=== PATIENT | male | born 1975 | race Caucasian/White ===

== ENCOUNTER 2018-02-12 14:23 | Outpatient (CLI) | payer OTHER | END 2018-02-12 14:24 | disposition home or self-care (01) | LOC: SC 14:23 | PROVIDERS: ATTEND Internal Medicine Pulmonary Disease | DX: G47.33 Obstructive sleep apnea (adult) (pediatric) (principal) | CPT/HCPCS: 99203; 99212 ==

== ENCOUNTER 2018-04-12 20:31 | Outpatient (CLI) | payer OTHER | END 2018-04-12 20:32 | disposition home or self-care (01) | LOC: SC 20:31 | PROVIDERS: ATTEND Internal Medicine Pulmonary Disease | DX: G47.33 Obstructive sleep apnea (adult) (pediatric) (principal) | CPT/HCPCS: 95810 ==

== ENCOUNTER 2018-05-09 09:02 | Outpatient (CLI) | payer OTHER | END 2018-05-09 09:03 | disposition home or self-care (01) | LOC: SC 09:02 | PROVIDERS: ATTEND Nurse Practitioner Family | DX: G47.33 Obstructive sleep apnea (adult) (pediatric) (principal) | CPT/HCPCS: 99212; 99214 ==

== ENCOUNTER 2018-10-07 17:22 | Outpatient (CLI) | payer OTHER ==
[2018-10-07] MEDS ORDERED: GADOBUTROL 10 MMOL/10 ML VIAL ONE (18:58)
[2018-10-07] MEDS ORDERED: GADOBUTROL 10 MMOL/10 ML VIAL IVP ONE (19:30)
--- NOTE | 2018-10-08 11:12 | MRI Report ---
Reason: MASS AT R NECK BASE Procedure Date: 10/07/2018 Accession Number: [id number] / [id number] Procedure: MRI - Neck Soft Tissue W/WO CPT Code: FULL RESULT: EXAM: MRI SOFT TISSUE NECK WITHOUT AND WITH CONTRAST EXAM DATE: 10/07/2018 08:14 PM. CLINICAL HISTORY: Mass at right neck base. COMPARISON: None. TECHNIQUE: Multiplanar, multisequence T1-weighted and fluid-sensitive MR sequences of the neck soft tissues were performed. Other: None. IV Contrast: 10 cc Gadavist. FINDINGS: No suspicious marrow replacement is seen in the cervical vertebral bodies. No mass is present in either parotid gland or in either submandibular gland. The thyroid gland is not enlarged. No bulky lymphadenopathy is seen in the neck. Nonenlarged lymph nodes are present at level 2 bilaterally. These might well be reactive in nature. Retention cyst/polyp formation is present in the right maxillary sinus. Scattered paranasal sinus mucosal thickening is present. In the posterior right neck at the level of the C4 vertebral body in the subcutaneous fat note is made of a T1 hyperintense well-circumscribed mass measuring 3.2 x 2.7 x 6.5 cm craniocaudal by anterior posterior by transverse. This follows fat signal on all pulse sequences. There is no associated enhancement. There is no involvement of the underlying muscles. No enhancing masses in the visualized brain. No mass is present in either orbit. No mass is identified in the nasopharynx. Parapharyngeal fat is symmetric. Aryepiglottic folds are not thickened. There is slight asymmetric soft tissue fullness involving the right aryepiglottic fold best seen on image 13 of series 1101 and image 16 of series 1001. IMPRESSION: 1. There is an encapsulated lipoma in the posterior right neck at the level of a marker. 2. No lymphadenopathy is seen in the neck. 3. Soft tissue asymmetry is seen involving the right aryepiglottic fold. Direct visualization would be of value to exclude a mass. 4. A mild subligamentous central disk protrusion is seen at C3-C4. RADIA
== END 2018-10-07 17:23 | disposition home or self-care (01) ==
LOC: DI 17:22
PROVIDERS: ATTEND Specialist
DX: D17.0 Benign lipomatous neoplasm of skin and subcutaneous tissue of head, face and neck (principal); M50.21 Other cervical disc displacement, high cervical region
CPT/HCPCS: 70543; A9585

== ENCOUNTER 2020-03-11 18:29 | Outpatient (CLI) | payer OTHER ==
--- NOTE | 2020-03-12 09:50 | Ultrasound Report ---
PROCEDURE: Testicle INDICATIONS: LT TESTICULAR MASS TECHNIQUE: Real-time scanning was performed of the scrotum and testicles, with image documentation. Color and p ulse Doppler interrogation was performed of both testicles. COMPARISON: None. FINDINGS: Right: Testicle is normal in size at 3.1 x 3.2 x 5.4 cm, and homogenous in echotexture. Epididymis is normal in overall size and morphology. No hydrocele or varicoceles. Overlying scrotal skin is no rmal in thickness. There are scattered right small epididymal cysts. Left: Testicle is normal in size at 3.0 x 3.6 x 5.2 cm, and homogeneous in echotexture. Epididymis is normal in overall size and morphology. No hydrocele or varicoceles. Overlying scrotal skin is no rmal in thickness. There is a small 4 mm left epididymal cyst. Doppler: Color and pulse Doppler demonstrate normal and symmetric arterial flow in both testicles. IMPRESSION: No testicular mass lesion found, no dominant epididymal cyst or mass identified. Source of reported l eft testicular masslike structure is not found. The area of the patient's clinical concern is localiz ed to the left epididymis. Reviewed by: Kaz Lorenzo MD on 03/12/2020 9:49 AM PDT Approved by: Kaz Lorenzo MD on 03/12/2020 9:49 AM PDT Station ID: [id number]
== END 2020-03-11 18:30 | disposition home or self-care (01) ==
LOC: DI 18:29
PROVIDERS: ATTEND Physician Assistant Medical
DX: N50.89 Other specified disorders of the male genital organs (principal)
CPT/HCPCS: 76870

== ENCOUNTER 2020-04-28 20:56 | Emergency (ER) | payer OTHER ==
[2020-04-28 21:03] VITALS: BP 141/93
--- NOTE | 2020-04-28 21:59 | ED Physician Documentation ---
PD HPI WOUND RECHECK - Stated complaint Stated Complaint: BLEEDING SURGERY SITE - Chief complaint Chief Complaint: Wound - Histroy obtained from History obtained from: Patient - History of Present Illness Location: Back Timing - onset: Today - Additional information Additional information: 44-year-old male presents the emergency department for concern that he may have ruptured a suture. This morning he had a lipoma removed from his posterior back near the right shoulder at [facility]. This afternoon he was going to the bathroom and bent over and felt a pop in the area where the incision was and then he had some bleeding. He felt that the bleeding was controlled but his insisted he present for ER evaluation Review of Systems Constitutional: reports: Reviewed and negative Eyes: reports: Reviewed and negative Ears: reports: Reviewed and negative Nose: reports: Reviewed and negative Cardiac: reports: Reviewed and negative Respiratory: reports: Reviewed and negative GI: reports: Reviewed and negative : reports: Reviewed and negative Skin: reports: Other (Surgical incision right upper posterior back) PD PAST MEDICAL HISTORY - Past Medical History Past Medical History: Yes GI: Ulcerative colitis - Past Surgical History Past Surgical History: No - Present Medications Home Medications: Ambulatory Orders Medication Instructions Recorded Confirmed No Known Home Medications 04/28/20 04/28/20 - Allergies Allergies/Adverse Reactions: Allergies Allergy/AdvReac Type Severity Reaction Status Date / Time No Known Drug Allergies Allergy Verified 04/28/20 21:03 - Social History Does the pt smoke?: No Smoking Status: Never smoker Does the pt drink ETOH?: Yes Does the pt have substance abuse?: No - Immunizations Immunizations are current?: No Immunizations: TDAP >10years/unknown PD ED PE EXPANDED - Derm Derm: Other (5 cm linear surgical incision right upper posterior back at the site of lipoma removal. All sutures appear intact and the wound is well approximated. There is some fresh bruising and bleeding noted at the site but no active extravasation) Results - Vitals Vitals: Vital Signs - 24 hr 04/28/20 21:00 Temperature 36.3 C L Heart Rate 82 Respiratory 18 Rate Blood Pressure 141/93 H O2 Saturation 95 Oxygen O2 Source Room air PD MEDICAL DECISION MAKING - ED course Complexity details: d/w patient ED course: 44-year-old male presents the emergency department for evaluation of a surgical incision that bled when he bent over this afternoon. On my exam he has all 5 sutures that are well seated and in place. There is some fresh blood around the surgical site but no active bleeding. It is possible this gentleman may have ruptured an internal suture. The wound appears clean dry and free of signs of infection. At this time no further treatment was rendered. It was cleansed and nonadherent dressing was placed over the wound and taped. I have advised the patient to discuss this ED visit with his surgeon. Emergent return precautions were discussed for concerns of infection Departure - Departure Disposition: 01 Home, Self Care Clinical Impression: Surgical wound present, Bleeding from wound Condition: Stable Record reviewed to determine appropriate education?: Yes Comments: Jose Miguel the incision looks good. All of the sutures that are there right now appear to be in place normally. It is possible that you may have ruptured an internal suture and that is the cause of bleeding. At this time no further treatment needs to be rendered. I do recommend that you continue wound care as your surgeon advised. I also recommend that you discuss this ED visit with your surgeon. Here she may be interested and seeing the pictures that we took tonight. Please return to the emergency department if you have concerns of infection which would include redness, swelling, fevers, milky drainage coming from the wound
== END 2020-04-28 22:02 | disposition home or self-care (01) ==
LOC: ED 20:56
DX: L76.21 Postprocedural hemorrhage of skin and subcutaneous tissue following a dermatologic procedure (principal)
CPT/HCPCS: 99281

== ENCOUNTER 2020-05-04 09:10 | Outpatient (CLI) | payer OTHER | END 2020-05-04 09:11 | disposition home or self-care (01) | LOC: RT 09:10 | PROVIDERS: ATTEND Physician Assistant Medical | DX: R06.00 Dyspnea, unspecified (principal) | CPT/HCPCS: 94010; 94729 ==

== ENCOUNTER 2021-08-25 20:46 | Emergency (ER) | payer OTHER ==
[2021-08-25 21:22] LABS: BASOPHILS # (AUTO) 0.1 10^3/uL (0.0-0.1); BASOPHILS % (AUTO) 0.7 %; EOSINOPHILS # (AUTO) 0.6 10^3/uL (0.0-0.7); EOSINOPHILS % (AUTO) 5.4 %; HCT - HEMATOCRIT 47.8 % (42.0-52.0); HGB - HEMOGLOBIN 15.9 g/dL (14.0-18.0); LYMPHOCYTES # (AUTO) 2.4 10^3/uL (1.5-3.5); LYMPHOCYTES % (AUTO) 23.5 %; MEAN CORPUSCULAR HEMOGLOBIN 28.9 pg (27.0-31.0); MEAN CORPUSCULAR HGB CONC 33.3 g/dL (32.0-36.0); MEAN CORPUSCULAR VOLUME 86.8 fL (80.0-94.0); MEAN PLATELET VOLUME 10.9 fL (7.4-11.4); MONOCYTES # (AUTO) 0.9 10^3/uL (0.0-1.0); MONOCYTES % (AUTO) 9.2 %; NEUTROPHILS # (AUTO) 6.2 10^3/uL (1.5-6.6); NEUTROPHILS % (AUTO) 60.9 %; PLT - PLATELET COUNT 240 10^3/uL (130-450); RED BLOOD COUNT 5.51 10^6/uL (4.70-6.10); RED CELL DISTRIBUTION WIDTH 13.6 % (12.0-15.0); WHITE BLOOD COUNT 10.2 x10^3/uL (4.8-10.8)
[2021-08-25 21:37] LABS: ALBUMIN 4.5 g/dL (3.2-5.5); ALBUMIN/GLOBULIN RATIO 1.5 (1.0-2.2); BILIRUBIN,TOTAL 0.9 mg/dL (0.2-1.0); CALCIUM 9.6 mg/dL (8.5-10.3); CREATININE 1.3 mg/dL (0.6-1.2); POTASSIUM 3.7 mmol/L (3.5-5.0); TOTAL PROTEIN 7.5 g/dL (6.7-8.2)
--- NOTE | 2021-08-25 21:47 | XRAY Report ---
PROCEDURE: Chest 1 View X-Ray INDICATIONS: Chest Pain TECHNIQUE: One view of the chest was acquired. COMPARISON: None FINDINGS: Surgical changes and devices: None. Lungs and pleura: No pleural effusions or pneumothorax. Lungs are clear. Mediastinum: Mediastinal contours appear normal. Heart size is normal. Bones and chest wall: No suspicious bony lesions. Overlying soft tissues appear unremarkable. IMPRESSION: No acute process. Reviewed by: Tammy Avina MD on 08/25/2021 9:46 PM [facility] Approved by: Tammy Avina MD on 08/25/2021 9:46 PM [facility] Station ID: [id number]
[2021-08-25] MEDS ORDERED: ONDANSETRON 4 MG/2 ML VIAL IVP STA (22:22)
[2021-08-25] MEDS ORDERED: FAMOTIDINE 20 MG/2 ML VIAL IVP STA (22:23)
--- NOTE | 2021-08-25 22:25 | ED Physician Documentation ---
History of Present Illness - Stated complaint Stated Complaint: CHEST PX, ABD PX, DIZZY - Chief complaint Chief Complaint: Cardiac - History obtained from History obtained from: Patient - Additonal information Additional information: 45-year-old man with past medical history of asthma, no other medical problems, non-smoker, no family history of cardiac disease, presents with gradual onset chest pain for the past 4 days, constant, left-sided radiating to the epigastrium, associated with fatigue and intermittent dizziness, nonexertional, also with nausea and 7 loose stools today.Denies fever, cough, worsening soa, back pain, urinary symptoms. Review of Systems Ten Systems: 10 systems reviewed and negative Constitutional: denies: Fever, Chills Cardiac: reports: Chest pain / pressure Respiratory: denies: Dyspnea, Cough GI: reports: Abdominal Pain, Nausea, Diarrhea. denies: Vomiting PD PAST MEDICAL HISTORY - Past Medical History Past Medical History: Yes GI: Ulcerative colitis HEENT: Other Other Past Medical History: Hx nasal septoplasty - Past Surgical History Past Surgical History: No General: Cholecystectomy - Present Medications Home Medications: Ambulatory Orders Medication Instructions Recorded Confirmed Citalopram Hydrobromide [Celexa] 08/25/21 Famotidine [Pepcid] 20 mg PO BID PRN #20 tablet 08/25/21 Ondansetron Odt [Zofran Odt] 4 mg TL Q6H PRN #10 tablet 08/25/21 Prazosin HCl [Minipress] 2 mg PO 08/25/21 - Allergies Allergies/Adverse Reactions: Allergies Allergy/AdvReac Type Severity Reaction Status Date / Time No Known Drug Allergies Allergy Verified 08/25/21 20:53 - Social History Does the pt smoke?: No Smoking Status: Never smoker Does the pt drink ETOH?: No Does the pt have substance abuse?: No - Immunizations Immunizations are current?: No Immunizations: TDAP >10years/unknown PD ED PE NORMAL - Vitals Vital signs reviewed: Yes - General General: Alert and oriented X 3, No acute distress, Well developed/nourished - HEENT HEENT: Atraumatic, PERRL, EOMI - Neck Neck: Supple, no meningeal sign - Cardiac Cardiac: RRR - Respiratory Respiratory: No respiratory distress, Clear bilaterally - Abdomen Abdomen: Non tender, Non distended - Back Back: No CVA TTP - Derm Derm: Normal color, Warm and dry - Extremities Extremities: No deformity - Neuro Neuro: Alert and oriented X 3, No motor deficit, No sensory deficit - Psych Psych: Normal mood, Normal affect Results - Vitals Vitals: Vital Signs - 24 hr 08/25/21 08/25/21 20:53 21:55 Temperature 36.5 C Heart Rate 72 64 Respiratory 16 11 L Rate Blood Pressure 140/90 H 134/85 H O2 Saturation 98 98 Oxygen O2 Source Room air - Labs Labs: Laboratory Tests 08/25/21 08/25/21 08/25/21 21:15 21:15 21:15 WBC 10.2 RBC 5.51 Hgb 15.9 Hct 47.8 MCV 86.8 MCH 28.9 MCHC 33.3 RDW 13.6 Plt Count 240 MPV 10.9 Neut # (Auto) 6.2 Lymph # (Auto) 2.4 [place]yer # (Auto) 0.9 Eos # (Auto) 0.6 Baso # (Auto) 0.1 Absolute Nucleated RBC 0.00 Nucleated RBC % 0.0 Sodium 140 Potassium 3.7 Chloride 98 L Carbon Dioxide 29 Anion Gap 13.0 BUN 17 Creatinine 1.3 H Estimated GFR (MDRD) 59 L Glucose 100 Calcium 9.6 Total Bilirubin 0.9 AST 18 ALT 19 Alkaline Phosphatase 49 Troponin I High Sens 3.9 Total Protein 7.5 Albumin 4.5 Globulin 3.0 Albumin/Globulin Ratio 1.5 Lipase 58 H PD MEDICAL DECISION MAKING - ED course ED course: 45-year-old man presenting with chest pain, heart score 0. PERC negative. On further history, he is having diarrhea, nausea, dizziness, and fatigue for the past few days. Possible viral syndrome. Symptomatic care discussed and return precautions given. Patient will follow up with his primary doctor. Departure - Departure Disposition: 01 Home, Self Care Clinical Impression: Chest pain, Diarrhea, Abdominal pain, Nausea, Dizziness Condition: Stable Instructions: ED Chest Pain Atypical Unkn Cause Prescriptions: Famotidine [Pepcid] 20 mg PO BID PRN #20 tablet PRN Reason: Pain Ondansetron Odt [Zofran Odt] 4 mg TL Q6H PRN #10 tablet PRN Reason: Nausea / Vomiting Comments: You are seen in the emergency department for evaluation of chest pain, abdominal pain, nausea, and loose stools. It is possible that you have a virus. Make sure that you continue to stay well-hydrated and get lots of rest. Follow-up with your primary doctor soon as possible. Return to the emergency department if you have any new or worsening symptoms or other concerns.
[2021-08-25 22:54] VITALS: BP 130/88
== END 2021-08-25 22:53 | disposition home or self-care (01) ==
LOC: ED 20:46
DX: R07.9 Chest pain, unspecified (principal); R10.9 Unspecified abdominal pain; R19.7 Diarrhea, unspecified; R11.0 Nausea; R42 Dizziness and giddiness
CPT/HCPCS: 36415; 80053; 83690; 84484; 85025; 93005; 96374; 96375; 99284

== ENCOUNTER 2021-08-26 08:12 | Emergency (ER) | payer OTHER ==
--- NOTE | 2021-08-26 08:23 | ED Physician Documentation ---
PD HPI ABD PAIN - Stated complaint Stated Complaint: ABD PX - History obtained from History obtained from: Patient - History of Present Illness Timing - onset: Yesterday Timing - duration: Days (2) Timing - details: Abrupt onset, Still present (has increased overnight) Quality: Cramping, Aching, Pain Location: RUQ, Epigastric Radiation: Chest. No: Lower back Improved by: No: Eating Worsened by: Eating Associated symptoms: Nausea, Vomiting (few episodes), Diarrhea (6-7 episodes yesterday, none today). No: Fever Similar symptoms before: Has not had sx before Recently seen: Clinic (went to [facility] this morning and referred to ER.), Emergency Dept (last evening for chest/abd pain as above.) Review of Systems Constitutional: reports: Myalgias. denies: Fever, Chills Nose: denies: Rhinorrhea / runny nose, Congestion Throat: denies: Sore throat Cardiac: denies: Palpitations Respiratory: denies: Cough GI: reports: Abdominal Pain, Nausea, Vomiting, Diarrhea. denies: Hematemesis, Bloody / black stool : denies: Dysuria, Frequency Musculoskeletal: denies: Neck pain, Back pain PD PAST MEDICAL HISTORY - Past Medical History Cardiovascular: None Respiratory: None GI: Ulcerative colitis HEENT: Other - Past Surgical History Past Surgical History: No General: Cholecystectomy - Present Medications Home Medications: Ambulatory Orders Medication Instructions Recorded Confirmed Citalopram Hydrobromide [Celexa] 08/25/21 Famotidine [Pepcid] 20 mg PO BID PRN #20 tablet 08/25/21 Ondansetron Odt [Zofran Odt] 4 mg TL Q6H PRN #10 tablet 08/25/21 Prazosin HCl [Minipress] 2 mg PO 08/25/21 HYDROcod/ACETAM 5/325 [Squires 5/325] 1 ea PO Q6H PRN #12 tablet 08/26/21 Lidocaine Viscous 2% [Xylocaine 5 ml PO Q4H PRN #100 ml 08/26/21 Viscous 2%] Ondansetron Odt [Zofran] 4 mg TL Q6H PRN #10 tablet 08/26/21 Pantoprazole Sodium 20 mg PO DAILY 30 Days #30 tab 08/26/21 Sucralfate [Carafate] 1 gm PO ACHS #20 tablet 08/26/21 - Allergies Allergies/Adverse Reactions: Allergies Allergy/AdvReac Type Severity Reaction Status Date / Time No Known Drug Allergies Allergy Verified 08/26/21 08:28 - Social History Does the pt smoke?: No Smoking Status: Never smoker Does the pt drink ETOH?: No Does the pt have substance abuse?: No - Immunizations Immunizations are current?: No Immunizations: TDAP >10years/unknown PD ED PE NORMAL - Vitals Vital signs reviewed: Yes - General General: Alert and oriented X 3, No acute distress, Well developed/nourished - HEENT HEENT: Pharynx benign - Neck Neck: Supple, no meningeal sign, No adenopathy - Cardiac Cardiac: RRR, No murmur - Respiratory Respiratory: Clear bilaterally - Abdomen Abdomen: Normal bowel sounds, Soft, Non distended, No organomegaly, Other (tender without guarding epigastric and RUQ area without percussion nor rebound tenderness. Some local guarding. ) - Back Back: No CVA TTP - Derm Derm: Normal color, Warm and dry - Extremities Extremities: Normal ROM s pain - Neuro Neuro: Alert and oriented X 3, No motor deficit, Normal speech Results - Vitals Vitals: Vital Signs - 24 hr 08/26/21 08/26/21 08/26/21 08:27 09:30 10:21 Temperature 36.4 C L Heart Rate 76 78 77 Respiratory 20 12 15 Rate Blood Pressure 138/99 H 134/77 H 135/83 H O2 Saturation 96 92 93 08/26/21 08/26/21 11:00 11:31 Temperature Heart Rate 71 80 Respiratory 20 12 Rate Blood Pressure 119/75 119/75 O2 Saturation 94 94 Oxygen O2 Source Room air - Labs Labs: Laboratory Tests 08/26/21 08/26/21 08:40 08:40 WBC 13.1 H RBC 5.40 Hgb 15.5 Hct 45.8 MCV 84.8 MCH 28.7 MCHC 33.8 RDW 13.5 Plt Count 224 MPV 10.8 Neut # (Auto) 11.2 H Lymph # (Auto) 1.0 L [place] # (Auto) 0.7 Eos # (Auto) 0.1 Baso # (Auto) 0.0 Absolute Nucleated RBC 0.00 Nucleated RBC % 0.0 Sodium 135 Potassium 3.8 Chloride 100 L Carbon Dioxide 24 Anion Gap 11.0 BUN 16 Creatinine 1.2 Estimated GFR (MDRD) 65 L Glucose 138 H Calcium 9.0 Total Bilirubin 0.8 AST 19 ALT 20 Alkaline Phosphatase 49 Total Protein 7.6 Albumin 4.4 Globulin 3.2 Albumin/Globulin Ratio 1.4 Lipase 37 - Rads (name of study) abd CT Radiology: Prelim report reviewed (thickened gastric mucosa in antrum. Duodenal diverticulum noted, but no signs inflammation at it. ), See rad report PD MEDICAL DECISION MAKING - ED course Complexity details: reviewed results (he is feeling better with PO and IV meds. ), re-evaluated patient (CT showing likely gastritis with antral wall thickening. Noted is a duodenal diverticula without signs of diverticulitis. No other acute process.), considered differential (gastritis/GE, biliary duct blockage, transverse colon divertic, pancreatitis, etc. ), d/w patient Departure - Departure Disposition: 01 Home, Self Care Clinical Impression: Acute upper abdominal pain, Duodenal diverticulum Gastritis, acute Qualifiers: Gastritis type: unspecified gastritis Gastritis bleeding: without bleeding Qualified Code(s): K29.00 - Acute gastritis without bleeding Condition: Stable Record reviewed to determine appropriate education?: Yes Instructions: ED Gastritis Prescriptions: Sucralfate [Carafate] 1 gm PO ACHS #20 tablet HYDROcod/ACETAM 5/325 [Squires 5/325] 1 ea PO Q6H PRN #12 tablet PRN Reason: Pain Pantoprazole Sodium 20 mg PO DAILY 30 Days #30 tab Lidocaine Viscous 2% [Xylocaine Viscous 2%] 5 ml PO Q4H PRN #100 ml PRN Reason: Pain Ondansetron Odt [Zofran] 4 mg TL Q6H PRN #10 tablet PRN Reason: Nausea / Vomiting Comments: Your CT scan shows some thickening of the wall of the stomach consistent with gastritis. No signs of perforation or such. DENTAL: No loose or chipped teeth. No malocclusion. Note is the presence of a diverticula from the duodenum which is the first part of the small intestine. It does not appear to have any infection or inflammation of it. Your gastritis may be part of a viral type illness (gastroenteritis) and account for some of the diarrhea you would had as well. However the stomach lining is still irritated now and causing the pain. As such we would treat it with acid reducing medicines for the next couple of weeks to a month as well as several days of coating the stomach with a medicine called sacral fate. To this you can add ondansetron if needed for nausea and antacids such as Maalox or Mylanta with some lidocaine if needed. Avoid irritants of the stomach such as caffeine, alcohol, NSAIDs, very spicy food. This would be for the next week or 2. If needed for pain, add Tylenol every 4-6 hours or hydrocodone if needed for worse pain. I would anticipate improvement over the next several days. Recheck if not improving well or if worsening. I transmitted your prescriptions to [facility] in [place]. I am prescribing a short course of narcotic pain medication for you. These are potentially dangerous and addictive medications that should be used carefully. These medications may constipate you. Take an [id number] stool softener such as docusate twice daily with plenty of water while taking these medications. If you go 24 hours without a bowel movement, take [id number]-[id number] MiraLAX, per package instructions. Do not drink or drive while taking these medications. If you received narcotic or sedating medications while in the emergency department do not drive for 24 hours. Store this medication in a safe, secure place and out of reach of children. It is a violation of federal law to give or sell this medication to another person or to use in a manner other than prescribed. The ED will not refill narcotic prescriptions, including prescriptions lost or stolen. You can dispose of unwanted medications at the [facility]'s office or at several pharmacies such as [facility]. Discharge Date/Time: 08/26/21 11:40
[2021-08-26] MEDS ORDERED: SODIUM CHLORIDE 0.9% 1,000 ML IV STA (08:37)
[2021-08-26] MEDS ORDERED: HYDROmorphone 1 MG/ML CARPUJECT IVP STA (08:37)
[2021-08-26] MEDS ORDERED: ONDANSETRON 4 MG/2 ML VIAL IVP STA (08:37)
[2021-08-26] MEDS ORDERED: MAG HYDROX/AL HYDROX/SIMETH 30 ML UDC PO STA (08:37)
[2021-08-26] MEDS ORDERED: LIDOCAINE VISCOUS 2% 15 ML UDC MM STA (08:37)
[2021-08-26 08:46] LABS: BASOPHILS % (AUTO) 0.2 %; EOSINOPHILS # (AUTO) 0.1 10^3/uL (0.0-0.7); EOSINOPHILS % (AUTO) 0.5 %; HCT - HEMATOCRIT 45.8 % (42.0-52.0); HGB - HEMOGLOBIN 15.5 g/dL (14.0-18.0); LYMPHOCYTES % (AUTO) 7.6 %; MEAN CORPUSCULAR HEMOGLOBIN 28.7 pg (27.0-31.0); MEAN CORPUSCULAR HGB CONC 33.8 g/dL (32.0-36.0); MEAN CORPUSCULAR VOLUME 84.8 fL (80.0-94.0); MEAN PLATELET VOLUME 10.8 fL (7.4-11.4); MONOCYTES # (AUTO) 0.7 10^3/uL (0.0-1.0); MONOCYTES % (AUTO) 5.3 %; NEUTROPHILS # (AUTO) 11.2 10^3/uL (1.5-6.6); NEUTROPHILS % (AUTO) 86.1 %; PLT - PLATELET COUNT 224 10^3/uL (130-450); RED CELL DISTRIBUTION WIDTH 13.5 % (12.0-15.0); WHITE BLOOD COUNT 13.1 x10^3/uL (4.8-10.8)
[2021-08-26 09:00] LABS: ALBUMIN 4.4 g/dL (3.2-5.5); ALBUMIN/GLOBULIN RATIO 1.4 (1.0-2.2); BILIRUBIN,TOTAL 0.8 mg/dL (0.2-1.0); CREATININE 1.2 mg/dL (0.6-1.2); POTASSIUM 3.8 mmol/L (3.5-5.0); TOTAL PROTEIN 7.6 g/dL (6.7-8.2)
[2021-08-26] MEDS ORDERED: IOPAMIDOL-300 50 ML VIAL ONE (09:26)
[2021-08-26] MEDS ORDERED: IOVERSOL 320 100 ML VIAL IVP ONE ×2 (09:26→10:15)
[2021-08-26] MEDS ORDERED: IOPAMIDOL-300 50 ML VIAL PO ONE (10:15)
--- NOTE | 2021-08-26 10:46 | CT Report ---
PROCEDURE: Abdomen/Pelvis W INDICATIONS: upper abd pain for 2 days CONTRAST: IV CONTRAST: Optiray 320 ml: 100 PO CONTRAST: Isovue 300 ml50 TECHNIQUE: After the administration of oral and intravenous contrast, 5 mm thick sections acquired from the diap hragms to the symphysis. 5 mm thick coronal and sagittal reformats were acquired. For radiation dos e reduction, the following was used: automated exposure control, adjustment of mA and/or kV accordin g to patient size. COMPARISON: None. FINDINGS: Image quality: Excellent. ABDOMEN: Lung bases: Lung bases are clear. Heart size is normal. Small hiatal hernia. Solid organs: Liver is normal in size. This mild hepatic steatosis. Spleen is normal in size and enh ancement. Gallbladder is surgically absent. Biliary system is non dilated. Pancreas enhances celso lly. No adrenal nodules. Kidneys demonstrate normal size and enhancement, without hydronephrosis. Peritoneum and bowel: Stomach is normal in size and filled with oral contrast. There is mild gastric antral thickening thickening of proximal duodenum. A sac-like structure filled with oral contrast is seen in the right upper quadrant adjacent to the pr oximal vertical segment of the duodenum measuring 1.9 x 3.5. It is most likely a duodenal diverticulu m with a narrow neck which is not filled with oral contrast. The wall of the sac is mildly irregular. Bowel loops demonstrate normal wall thickness and caliber. Appendix is normal. No free fluid or air. Nodes and vessels: No retroperitoneal or mesenteric adenopathy by size criteria. Aorta and inferior vena cava are normal in size. Miscellaneous: No ventral hernias. PELVIS: Genitourinary: Bladder wall thickness is normal. Miscellaneous: No inguinal hernias or adenopathy. Bones: There is a 9 mm sclerotic focus right anterior acetabulum, indeterminate. No vertebral body c ompression fractures. IMPRESSION: 1. There is mild gastric antral thickening thickening of proximal jejunum, which may be secondary to peptic ulcer disease. Recommend clinical correlation. 2. A sac-like structures is noted in right upper quadrant adjacent to the vertical segment of the duo denum, which is filled with oral contrast, most likely a duodenal diverticulum. The wall of the diver ticulum is mildly irregular. For further evaluation and confirmation, upper GI series would be helpfu l. The result was discussed with Dr. Nettles. Reviewed by: Davis Fitzpatrick MD on 08/26/2021 10:45 AM PST Approved by: Davis Fitzpatrick MD on 08/26/2021 10:45 AM PST Station ID: [id number]
[2021-08-26] MEDS ORDERED: PANTOPRAZOLE 40 MG VIAL IVP STA (11:00)
[2021-08-26 11:09] VITALS: BP 119/75
== END 2021-08-26 11:40 | disposition home or self-care (01) ==
LOC: ED 08:12
DX: K29.00 Acute gastritis without bleeding (principal); K57.10 Diverticulosis of small intestine without perforation or abscess without bleeding
CPT/HCPCS: 36415; 74177; 80053; 83690; 85025; 96374; 96375; 99284; A9270; J1170; Q9967

== ENCOUNTER 2021-08-30 10:25 | Outpatient (CLI) | payer OTHER ==
[2021-08-30 18:18] LABS: BASOPHILS # (AUTO) 0.1 10^3/uL (0.0-0.1); BASOPHILS % (AUTO) 0.7 %; EOSINOPHILS # (AUTO) 0.3 10^3/uL (0.0-0.7); EOSINOPHILS % (AUTO) 3.5 %; HCT - HEMATOCRIT 51.1 % (42.0-52.0); HGB - HEMOGLOBIN 16.8 g/dL (14.0-18.0); LYMPHOCYTES # (AUTO) 1.7 10^3/uL (1.5-3.5); LYMPHOCYTES % (AUTO) 22.8 %; MEAN CORPUSCULAR HEMOGLOBIN 28.6 pg (27.0-31.0); MEAN CORPUSCULAR HGB CONC 32.9 g/dL (32.0-36.0); MEAN CORPUSCULAR VOLUME 87.1 fL (80.0-94.0); MEAN PLATELET VOLUME 11.7 fL (7.4-11.4); MONOCYTES # (AUTO) 0.7 10^3/uL (0.0-1.0); MONOCYTES % (AUTO) 9.6 %; NEUTROPHILS # (AUTO) 4.8 10^3/uL (1.5-6.6); NEUTROPHILS % (AUTO) 63.1 %; PLT - PLATELET COUNT 273 10^3/uL (130-450); RED BLOOD COUNT 5.87 10^6/uL (4.70-6.10); RED CELL DISTRIBUTION WIDTH 13.4 % (12.0-15.0); WHITE BLOOD COUNT 7.5 x10^3/uL (4.8-10.8)
[2021-08-30 18:41] LABS: ALBUMIN 4.9 g/dL (3.2-5.5); ALBUMIN/GLOBULIN RATIO 1.4 (1.0-2.2); ALKALINE PHOSPHATASE 49 IU/L (42-121); ALT ALANINE AMINOTRANSFERASE 21 IU/L (10-60); AST ASPARTATE AMINOTRANSFERASE 20 IU/L (10-42); BILIRUBIN,TOTAL 0.9 mg/dL (0.2-1.0); BUN - BLOOD UREA NITROGEN 17 mg/dL (6-20); CARBON DIOXIDE - CO2 31 mmol/L (21-32); CHLORIDE 98 mmol/L (101-111); CHOL/HDL RATIO 4.7 (<5.0); CHOLESTEROL 197 mg/dL; CREATININE 1.4 mg/dL (0.6-1.2); GFR - MDRD 55 (>89); GLUCOSE 91 mg/dL (70-100); HDL CHOLESTEROL 42 mg/dL; LDL CHOLESTEROL,CALCULATED 127 mg/dL; POTASSIUM 4.9 mmol/L (3.5-5.0); SODIUM 140 mmol/L (135-145); TOTAL PROTEIN 8.3 g/dL (6.7-8.2); TRIGLYCERIDES 139 mg/dL; VLDL CHOLESTEROL 28 mg/dL
[2021-08-30 18:48] LABS: THYROID STIMULATING HORMONE 2.14 uIU/mL (0.34-5.60)
[2021-08-30 19:54] LABS: ESTIMATED AVERAGE GLUCOSE 103 mg/dL (70-100); HEMOGLOBIN A1c% 5.2 % (4.27-6.07)
== END 2021-08-30 10:26 | disposition home or self-care (01) ==
LOC: LAB.N 10:25
PROVIDERS: ATTEND Physician Assistant
DX: Z13.1 Encounter for screening for diabetes mellitus (principal); Z13.220 Encounter for screening for lipoid disorders; Z12.5 Encounter for screening for malignant neoplasm of prostate; Z13.29 Encounter for screening for other suspected endocrine disorder; Z13.9 Encounter for screening, unspecified
CPT/HCPCS: 36415; 80053; 80061; 83036; 83721; 84153; 84443; 85025

== ENCOUNTER 2023-01-16 07:09 | Outpatient (CLI) | payer OTHER ==
[2023-01-16 12:52] LABS: BASOPHILS # (AUTO) 0.1 10^3/uL (0.0-0.1); BASOPHILS % (AUTO) 0.6 %; EOSINOPHILS # (AUTO) 0.8 10^3/uL (0.0-0.7); EOSINOPHILS % (AUTO) 8.7 %; HCT - HEMATOCRIT 48.7 % (42.0-52.0); HGB - HEMOGLOBIN 16.3 g/dL (14.0-18.0); LYMPHOCYTES # (AUTO) 2.2 10^3/uL (1.5-3.5); LYMPHOCYTES % (AUTO) 23.3 %; MEAN CORPUSCULAR HEMOGLOBIN 29.2 pg (27.0-31.0); MEAN CORPUSCULAR HGB CONC 33.5 g/dL (32.0-36.0); MEAN CORPUSCULAR VOLUME 87.1 fL (80.0-94.0); MEAN PLATELET VOLUME 11.4 fL (7.4-11.4); MONOCYTES # (AUTO) 0.8 10^3/uL (0.0-1.0); MONOCYTES % (AUTO) 8.6 %; NEUTROPHILS # (AUTO) 5.5 10^3/uL (1.5-6.6); NEUTROPHILS % (AUTO) 58.5 %; PLT - PLATELET COUNT 259 10^3/uL (130-450); RED BLOOD COUNT 5.59 10^6/uL (4.70-6.10); RED CELL DISTRIBUTION WIDTH 13.7 % (12.0-15.0); WHITE BLOOD COUNT 9.4 x10^3/uL (4.8-10.8)
[2023-01-16 13:29] LABS: ALBUMIN 4.2 g/dL (3.2-5.5); ALBUMIN/GLOBULIN RATIO 1.4 (1.0-2.2); ALKALINE PHOSPHATASE 52 IU/L (42-121); ALT ALANINE AMINOTRANSFERASE 14 IU/L (10-60); AST ASPARTATE AMINOTRANSFERASE 15 IU/L (10-42); BILIRUBIN,TOTAL 0.6 mg/dL (0.2-1.0); BUN - BLOOD UREA NITROGEN 13 mg/dL (6-20); CALCIUM 9.6 mg/dL (8.5-10.3); CARBON DIOXIDE - CO2 30 mmol/L (21-32); CHLORIDE 103 mmol/L (101-111); CHOL/HDL RATIO 4.5 (<5.0); CHOLESTEROL 175 mg/dL; CREATININE 1.3 mg/dL (0.6-1.3); CRP - C-REACTIVE PROTEIN 1.1 mg/dL (<0.5); GFR - MDRD 59 (>89); GLUCOSE 93 mg/dL (74-104); HDL CHOLESTEROL 39 mg/dL; LDL CHOLESTEROL,CALCULATED 89 mg/dL; LDL/HDL RATIO 2.3 (<3.6); POTASSIUM 4.2 mmol/L (3.5-4.5); SODIUM 139 mmol/L (135-145); TOTAL PROTEIN 7.1 g/dL (6.4-8.9); TRIGLYCERIDES 236 mg/dL (48-352); URIC ACID 8.1 mg/dL (4.4-7.6); VLDL CHOLESTEROL 47 mg/dL
[2023-01-16 13:38] LABS: THYROID STIMULATING HORMONE 3.05 uIU/mL (0.34-5.60)
== END 2023-01-16 07:10 | disposition home or self-care (01) ==
LOC: LAB.N 07:09
PROVIDERS: ATTEND Physician Assistant Medical
DX: Z00.00 Encounter for general adult medical examination without abnormal findings (principal); Z12.5 Encounter for screening for malignant neoplasm of prostate; M25.50 Pain in unspecified joint
CPT/HCPCS: 36415; 80053; 80061; 83721; 84153; 84443; 84550; 85025; 85651; 86140